=== PATIENT | female | born 1940 | race Caucasian/White ===

== ENCOUNTER 2017-03-20 14:35 | Emergency (ER) | payer MEDICARE, OTHER ==
[2015-01-01 10:22] VITALS: BMI 32.8
[~2017-03-20 14:35] MED LIST: AMBIEN10 MG PO; ATROVENT 0.02%2.5 ML UPD; BAYER CHEWABLE81 MG PO; BONIVA3 MG/3 ML/ IM; CEREFOLIN; CYMBALTA60 MG PO; DEXILANT60 MG PO; ELAVIL25 MG PO; ELIQUIS2.5 MG PO; EVOXAC30 MG PO; EXELON1 PATCH .1 TD; EXELON1 PATCH .1 TRANSDERM; FLEXERIL10 MG PO; GLUCOSAMINE HC500 MG PO; LIPITOR10 MG PO; LYRICA50 MG PO; MOBIC7.5 MG PO; MULTI-DAY VITAM1 TAB PO; NAMENDA XR7 MG; NORCO 10/325 TA1 TA1 PO; PERCOCET 10/3251 TA1 PO; PHENERGAN25 M1 PO; PROBIOTIC1 EAC1 PO; PROTONIX40 MG PO; SYNTHROID50 MCG PO; TOPROL XL50 MG PO; TRICOR145 MG PO; VENTOLIN HFA18 GM INH; XANAX0.5 MG PO
== END 2017-03-20 16:44 | disposition home or self-care (01) ==
LOC: D.ER 14:35
DX: S70.02XA Contusion of left hip, initial encounter (principal); W01.0XXA Fall on same level from slipping, tripping and stumbling without subsequent striking against object, initial encounter; Y93.89 Activity, other specified; Y92.029 Unspecified place in mobile home as the place of occurrence of the external cause

== ENCOUNTER 2017-08-12 15:45 | Inpatient (IN) | payer MEDICARE, OTHER ==
[~2017-08-12] VITALS: Ht 165.1 cm; Wt 95.5 kg
--- NOTE | ~2017-08-12 | EC ---
PATIENT:ALEENA ESPANA DATE OF SERVICE: 08/12/17 SEX: F MEDICAL RECORD: [id number] DATE OF : 42 LOCATION:[facility] AGE OF PATIENT: 77 ADMISSION DATE: 08/12/17 REFERRING PHYSICIAN: INTERPRETING PHYSICIAN: SABRA CRENSHAW MD ECHOCARDIOGRAM REPORT ECHO CHARGES 4 ECHO COMPLETE Date: 08/14 CLINICAL DIAGNOSIS: CHF ECHOCARDIOGRAPHIC MEASUREMENTS (adult normal given) AC root (d.<3.7cm) 3.5 cm LV Septum d (<1.2 cm> 1.6 cm Valve Excursion 1.7 cm LV Septum (systole) 2.0 cm Left Atria (s.<4.0cm> 3.5 cm LVPW d(<1.2cm) 1.6 cm RV (d.<2.3cm) 2.6 cm LVPW (sytole) 2.0 cm LV diastole(<5.6CM) 4.2 cm MV E-F(>70mm/sec) cm LV systole 2.9 cm LVOT Diameter 1.8 cm MV exc.(>10mm) cm Est.ejection fraction (50-75%) % DOPPLER: LVIT cm/sec A 121 cm/sec E 153 cm/sec LA cm/sec RVSP 46.0 mmHg LVOT 96.0 cm/sec AOP1/2T m/s Asc. 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 Crenshaw TAPE# PACS Pericardial Effusion N DATE OF SERVICE: FINDINGS: 1. Left ventricular chamber size is upper limits of normal. Left ventricular systolic function is mild to moderately reduced. Overall ejection fraction in the 35% range. 2. Left atrium, right atrium, and right ventricular chamber sizes are within normal limits. 3. Valvular structures have normal structure and motion. 4. Doppler interrogation reveals moderate mitral regurgitation, moderate ECHOCARDIOGRAM REPORT [id number] ALEENA ESPANA tricuspid regurgitation, no other valvular insufficiency or stenosis. Pulmonary systolic pressure is elevated, estimated at 46 mmHg. 5. No evidence of pericardial effusion or left ventricular thrombus. 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
[2017-08-12 17:39] LABS: ALBUMIN 2.7 g/dL (3.4-5.0); BILIRUBIN - TOTAL 0.56 mg/dL (0.2-1.3); CALCIUM 8.2 mg/dL (8.5-10.1); CARBON DIOXIDE 30.9 mmol/L (21.0-32.0); CREATININE - SERUM 0.9 mg/dL (0.6-1.3)
[2017-08-12 17:46] LABS: POTASSIUM - SERUM 2.9 mmol/L (3.5-5.1)
[2017-08-12 18:48] LABS: BASOPHILS 0.3 % (0-2); EOSINOPHILS 10.6 % (0-7); LYMPHOCYTES 15.9 % (15-50); MCH 22.6 pg (26.0-34.0); MCHC 28.8 g/dL (31.0-37.0); MCV 78.6 fL (80.0-100.0); MEAN PLATELET VOLUME 9.9 fL (7.4-10.4); MONOCYTES 9.9 % (2-11); NEUTROPHILS 63.3 % (40-80); PLATELET COUNT 325 10x3/uL (130-400); RBC 2.52 10x6/uL (4.00-5.40); RDW 18.5 % (11.5-14.5); WBC 6.9 10x3/uL (4.8-10.8)
[2017-08-12 18:52] LABS: HEMATOCRIT 19.8 % (36.0-48.0); HEMOGLOBIN 5.7 g/dL (12-16)
[2017-08-12] MEDS ORDERED: LYRICA50 MG PO (22:29)
[2017-08-12 23:38] VITALS: BP 192/92
[2017-08-12 23:45] VITALS: BP 158/74
[2017-08-13] VITALS (7 sets, daily range): BP systolic 144–192; BP diastolic 53–92; BMI 35.0
[2017-08-13 07:16] LABS: EOSINOPHILS 15.1 % (0-7); IMMATURE GRANULOCYTES 0.1 % (0-5); LYMPHOCYTES 18.8 % (15-50); MCH 23.9 pg (26.0-34.0); MCHC 30.1 g/dL (31.0-37.0); MCV 79.4 fL (80.0-100.0); MEAN PLATELET VOLUME 10.1 fL (7.4-10.4); MONOCYTES 10.9 % (2-11); NEUTROPHILS 54.1 % (40-80); PLATELET COUNT 319 10x3/uL (130-400); RDW 17.7 % (11.5-14.5); WBC 7.2 10x3/uL (4.8-10.8)
[2017-08-13 07:24] LABS: HEMATOCRIT 25.9 % (36.0-48.0); HEMOGLOBIN 7.8 g/dL (12-16); RBC 3.26 10x6/uL (4.00-5.40)
[2017-08-13 08:35] LABS: ALBUMIN 2.6 g/dL (3.4-5.0); ANION GAP 8.4 mmol/L (8-16); BILIRUBIN - TOTAL 0.6 mg/dL (0.2-1.3); CALCIUM 8.4 mg/dL (8.5-10.1); CARBON DIOXIDE 31.8 mmol/L (21.0-32.0); MAGNESIUM - SERUM 1.4 mg/dL (1.8-2.4); PHOSPHOROUS 3.3 mg/dL (2.5-4.9); POTASSIUM - SERUM 3.2 mmol/L (3.5-5.1); PROTEIN - SERUM 5.5 g/dL (6.4-8.2)
[2017-08-13 14:54] LABS: % SATURATION 13 % (15-55); IRON 62 ug/dl (35-150); TOTAL IRON BIND CAPACITY 454 ug/dl (260-445); UNSAT IRON BIND CAPACITY 392 ug/dl (150-375)
[2017-08-13] MEDS ORDERED: TRICOR145 MG PO (15:51)
[2017-08-13] MEDS ORDERED: MOBIC7.5 MG PO (15:52)
[2017-08-13] MEDS ORDERED: AMBIEN10 MG PO (15:53)
[2017-08-13] MEDS ORDERED: CALCIUM 600 +1 EAC3 PO (15:55)
[2017-08-13] MEDS ORDERED: PROTONIX40 MG PO (15:56)
[2017-08-13] MEDS ORDERED: TOPROL XL50 MG PO (15:57)
[2017-08-13] MEDS ORDERED: LIPITOR10 MG PO (16:00)
[2017-08-13] MEDS ORDERED: CENTRUM SILVER1 TA1 PO (16:01)
[2017-08-14] VITALS (13 sets, daily range): BP systolic 105–169; BP diastolic 67–92; Ht 165.1 cm; Wt 95.5 kg
[2017-08-14 05:35] LABS: EOSINOPHILS 14.9 % (0-7); IMMATURE GRANULOCYTES 0.3 % (0-5); LYMPHOCYTES 20.8 % (15-50); MCH 25.5 pg (26.0-34.0); MCHC 31.8 g/dL (31.0-37.0); MCV 80.3 fL (80.0-100.0); MEAN PLATELET VOLUME 10.5 fL (7.4-10.4); PLATELET COUNT 266 10x3/uL (130-400); RDW 16.4 % (11.5-14.5); WBC 6.2 10x3/uL (4.8-10.8)
[2017-08-14 05:41] LABS: HEMATOCRIT 34.6 % (36.0-48.0); RBC 4.31 10x6/uL (4.00-5.40)
[2017-08-14 06:02] LABS: ANION GAP 7.2 mmol/L (8-16); CALCIUM 8.1 mg/dL (8.5-10.1); CARBON DIOXIDE 30.2 mmol/L (21.0-32.0); CREATININE - SERUM 0.8 mg/dL (0.6-1.3); POTASSIUM - SERUM 3.4 mmol/L (3.5-5.1)
[2017-08-15 00:40] VITALS: BP 152/78
[2017-08-15 04:38] VITALS: BP 140/77
[2017-08-15 06:30] LABS: BASOPHILS 0.9 % (0-2); EOSINOPHILS 12.5 % (0-7); HEMATOCRIT 36.5 % (36.0-48.0); HEMOGLOBIN 11.7 g/dL (12-16); IMMATURE GRANULOCYTES 0.3 % (0-5); LYMPHOCYTES 17.6 % (15-50); MCH 25.8 pg (26.0-34.0); MCHC 32.1 g/dL (31.0-37.0); MCV 80.6 fL (80.0-100.0); MEAN PLATELET VOLUME 11.3 fL (7.4-10.4); NEUTROPHILS 49.7 % (40-80); PLATELET COUNT 309 10x3/uL (130-400); RBC 4.53 10x6/uL (4.00-5.40); RDW 17.1 % (11.5-14.5)
[2017-08-15 06:46] LABS: ALBUMIN 2.4 g/dL (3.4-5.0); ANION GAP 10.2 mmol/L (8-16); BILIRUBIN - TOTAL 0.43 mg/dL (0.2-1.3); CARBON DIOXIDE 29.9 mmol/L (21.0-32.0); PROTEIN - SERUM 5.7 g/dL (6.4-8.2)
[2017-08-15 06:48] LABS: POTASSIUM - SERUM 3.1 mmol/L (3.5-5.1)
[2017-08-15 08:21] LABS: FOLATE (FOLIC ACID) - SERUM 14.9 ng/mL (>3.0)
[2017-08-15 09:10] VITALS: BP 151/99
[2017-08-15 13:51] VITALS: BP 162/84
== END 2017-08-15 18:36 | disposition home health service (06) | DRG 812 ==
LOC: D.ER 15:45 → D.EDHOLD 18:56 → D.MS 18:56 → D.M2 18:56 → D.MS 21:18 → D.SDCHOLD 08-14 12:43 → D.MS 08-15 18:36
PROVIDERS: Family Medicine; Internal Medicine Nephrology; Physician Assistant
DX: D50.9 Iron deficiency anemia, unspecified (principal); F03.90 Unspecified dementia, unspecified severity, without behavioral disturbance, psychotic disturbance, mood disturbance, and anxiety; J44.9 Chronic obstructive pulmonary disease, unspecified; R53.1 Weakness; K21.9 Gastro-esophageal reflux disease without esophagitis; I10 Essential (primary) hypertension; E87.6 Hypokalemia; E83.42 Hypomagnesemia; Z95.0 Presence of cardiac pacemaker; W57.XXXA Bitten or stung by nonvenomous insect and other nonvenomous arthropods, initial encounter; B88.8 Other specified infestations; M19.90 Unspecified osteoarthritis, unspecified site; Z99.3 Dependence on wheelchair

== ENCOUNTER 2017-10-17 15:51 | Inpatient (IN) | payer MEDICARE, OTHER ==
[~2017-10-17] VITALS: Ht 165.1 cm; Wt 72.6 kg
[~2017-10-17 15:51] MED LIST changes: +CALCIUM 600 +1 EAC3 PO; +CENTRUM SILVER1 TA1 PO
[2017-10-17] MEDS ORDERED: XANAX0.5 MG PO (17:01)
[2017-10-17] MEDS ORDERED: VENTOLIN HFA18 GM INH (17:03)
[2017-10-17] MEDS ORDERED: [UNRECOGNIZED DRUG - OTHER] (17:14)
[2017-10-17 17:43] VITALS: BP 186/70; BMI 26.6
[2017-10-17 18:57] LABS: BASOPHILS 0.5 % (0-2); EOSINOPHILS 7.8 % (0-7); HEMOGLOBIN 9.4 g/dL (12-16); IMMATURE GRANULOCYTES 0.2 % (0-5); LYMPHOCYTES 20.3 % (15-50); MCH 28.2 pg (26.0-34.0); MCHC 32.4 g/dL (31.0-37.0); MCV 87.1 fL (80.0-100.0); MEAN PLATELET VOLUME 10.5 fL (7.4-10.4); MONOCYTES 8.5 % (2-11); NEUTROPHILS 62.7 % (40-80); PLATELET COUNT 258 10x3/uL (130-400); RBC 3.33 10x6/uL (4.00-5.40); RDW 20.5 % (11.5-14.5); WBC 6.2 10x3/uL (4.8-10.8)
[2017-10-17 19:16] LABS: ALBUMIN 2.8 g/dL (3.4-5.0); ANION GAP 5.9 mmol/L (8-16); BILIRUBIN - TOTAL 0.22 mg/dL (0.2-1.3); CALCIUM 8.4 mg/dL (8.5-10.1); CARBON DIOXIDE 34.3 mmol/L (21.0-32.0); CREATININE - SERUM 0.9 mg/dL (0.6-1.3); POTASSIUM - SERUM 3.2 mmol/L (3.5-5.1); PROTEIN - SERUM 5.8 g/dL (6.4-8.2)
[2017-10-17 19:24] LABS: THYROID STIMULATING HORMONE 3.09 uIU/mL (0.36-3.74)
[2017-10-17 20:00] VITALS: BP 181/72
[2017-10-18] VITALS: BP 155/69
[2017-10-18 02:23] LABS: APPEARANCE CLEAR (CLEAR); BILIRUBIN NEGATIVE (NEGATIVE); COLOR YELLOW (YELLOW); GLUCOSE NEGATIVE (NEGATIVE); KETONE NEGATIVE (NEGATIVE); NITRITE NEGATIVE (NEGATIVE); PROTEIN NEGATIVE (NEGATIVE); SPECIFIC GRAVITY 1.005 (1.005-1.020); UROBILINOGEN NORMAL (NORMAL)
[2017-10-18 08:29] VITALS: BP 130/70
[2017-10-18 11:37] VITALS: BP 140/80
[2017-10-18 14:16] VITALS: Ht 165.1 cm; Wt 72.6 kg
[2017-10-18 15:37] VITALS: BP 138/78
[2017-10-18 19:29] LABS: HEMATOCRIT 30.7 % (36.0-48.0); HEMOGLOBIN 10.1 g/dL (12-16); MCH 28.2 pg (26.0-34.0); MCHC 32.9 g/dL (31.0-37.0); MCV 85.8 fL (80.0-100.0); MEAN PLATELET VOLUME 10.8 fL (7.4-10.4); PLATELET COUNT 297 10x3/uL (130-400); RBC 3.58 10x6/uL (4.00-5.40); RDW 20.5 % (11.5-14.5); WBC 5.2 10x3/uL (4.8-10.8)
[2017-10-18 19:54] LABS: ANION GAP 8.7 mmol/L (8-16); BILIRUBIN - TOTAL 0.27 mg/dL (0.2-1.3); CALCIUM 8.6 mg/dL (8.5-10.1); CARBON DIOXIDE 32.9 mmol/L (21.0-32.0); CREATININE - SERUM 0.9 mg/dL (0.6-1.3); MAGNESIUM - SERUM 1.6 mg/dL (1.8-2.4); POTASSIUM - SERUM 3.6 mmol/L (3.5-5.1); PROTEIN - SERUM 6.6 g/dL (6.4-8.2)
[2017-10-18 19:58] LABS: APTT 29.1 SECONDS (22.8-39.4); INR 1.03 (0.85-1.17); PROTIME 13.1 SECONDS (11.6-15.0)
[2017-10-18 20:00] VITALS: BP 199/82
[2017-10-18 20:44] LABS: EOSINOPHILS 7 % (0-7); LYMPHOCYTES 28 % (15-50); MONOCYTES 3 % (2-11); NEUTROPHILS 63 % (40-80); PLATELET ESTIMATE NORMAL
[2017-10-18 20:53] VITALS: BP 199/82
[2017-10-19 01:31] VITALS: BP 206/90
[2017-10-19 04:59] LABS: BASOPHILS 0.9 % (0-2); EOSINOPHILS 8.3 % (0-7); HEMATOCRIT 28.7 % (36.0-48.0); HEMOGLOBIN 9.4 g/dL (12-16); LYMPHOCYTES 29.1 % (15-50); MCHC 32.8 g/dL (31.0-37.0); MCV 85.4 fL (80.0-100.0); MEAN PLATELET VOLUME 10.6 fL (7.4-10.4); MONOCYTES 10.9 % (2-11); NEUTROPHILS 50.8 % (40-80); PLATELET COUNT 255 10x3/uL (130-400); RBC 3.36 10x6/uL (4.00-5.40); RDW 20.4 % (11.5-14.5); WBC 4.6 10x3/uL (4.8-10.8)
[2017-10-19 05:28] LABS: CALCIUM 8.2 mg/dL (8.5-10.1); CARBON DIOXIDE 31.1 mmol/L (21.0-32.0); CREATININE - SERUM 0.9 mg/dL (0.6-1.3); POTASSIUM - SERUM 3.1 mmol/L (3.5-5.1)
[2017-10-19 06:06] VITALS: BP 106/73
[2017-10-19 07:54] VITALS: BP 139/78
[2017-10-19 10:57] VITALS: BP 142/79
[2017-10-19 16:38] VITALS: BP 136/78
[2017-10-19 17:35] LABS: ANION GAP 10.1 mmol/L (8-16); CALCIUM 9.1 mg/dL (8.5-10.1); CARBON DIOXIDE 30.1 mmol/L (21.0-32.0); CREATININE - SERUM 0.8 mg/dL (0.6-1.3)
[2017-10-19 17:37] LABS: POTASSIUM - SERUM 4.2 mmol/L (3.5-5.1)
[2017-10-19 19:00] VITALS: BP 175/83
[2017-10-20 01:39] VITALS: BP 135/65
[2017-10-20 04:00] VITALS: BP 136/63
[2017-10-20 05:37] LABS: EOSINOPHILS 5.5 % (0-7); HEMATOCRIT 28.2 % (36.0-48.0); HEMOGLOBIN 9.4 g/dL (12-16); LYMPHOCYTES 33.6 % (15-50); MCH 28.1 pg (26.0-34.0); MCHC 33.3 g/dL (31.0-37.0); MCV 84.4 fL (80.0-100.0); MONOCYTES 12.9 % (2-11); PLATELET COUNT 256 10x3/uL (130-400); RBC 3.34 10x6/uL (4.00-5.40); RDW 20.3 % (11.5-14.5)
[2017-10-20 05:41] LABS: ANION GAP 8.9 mmol/L (8-16); CALCIUM 9.2 mg/dL (8.5-10.1); CARBON DIOXIDE 31.3 mmol/L (21.0-32.0); CREATININE - SERUM 0.9 mg/dL (0.6-1.3)
[2017-10-20 05:42] LABS: POTASSIUM - SERUM 3.2 mmol/L (3.5-5.1)
[2017-10-20 07:40] VITALS: BP 132/71
[2017-10-20 10:54] VITALS: BP 130/64
[2017-10-20 14:53] VITALS: BP 138/76
[2017-10-20 21:24] VITALS: BP 158/74
[2017-10-21 01:30] VITALS: BP 137/66
[2017-10-21 06:28] VITALS: BP 157/67
[2017-10-21 07:06] LABS: BASOPHILS 0.7 % (0-2); EOSINOPHILS 9.2 % (0-7); HEMATOCRIT 29.2 % (36.0-48.0); HEMOGLOBIN 9.5 g/dL (12-16); IMMATURE GRANULOCYTES 0.2 % (0-5); LYMPHOCYTES 30.9 % (15-50); MCH 28.2 pg (26.0-34.0); MCHC 32.5 g/dL (31.0-37.0); MCV 86.6 fL (80.0-100.0); MEAN PLATELET VOLUME 11.1 fL (7.4-10.4); MONOCYTES 11.9 % (2-11); NEUTROPHILS 47.1 % (40-80); PLATELET COUNT 260 10x3/uL (130-400); RBC 3.37 10x6/uL (4.00-5.40); RDW 20.7 % (11.5-14.5); WBC 4.4 10x3/uL (4.8-10.8)
[2017-10-21 07:27] LABS: ANION GAP 10.2 mmol/L (8-16); CALCIUM 8.7 mg/dL (8.5-10.1); CARBON DIOXIDE 29.6 mmol/L (21.0-32.0); CREATININE - SERUM 0.9 mg/dL (0.6-1.3)
[2017-10-21 07:28] LABS: POTASSIUM - SERUM 3.8 mmol/L (3.5-5.1)
[2017-10-21 08:51] VITALS: BP 158/83
[2017-10-21 12:26] VITALS: BP 160/80
[2017-10-21 16:17] VITALS: BP 149/74
[2017-10-21 23:07] VITALS: BP 165/82
[2017-10-22 05:51] LABS: BASOPHILS 0.6 % (0-2); EOSINOPHILS 7.7 % (0-7); HEMOGLOBIN 9.5 g/dL (12-16); IMMATURE GRANULOCYTES 0.2 % (0-5); LYMPHOCYTES 27.1 % (15-50); MCH 28.3 pg (26.0-34.0); MCHC 32.8 g/dL (31.0-37.0); MCV 86.3 fL (80.0-100.0); MEAN PLATELET VOLUME 11.1 fL (7.4-10.4); MONOCYTES 11.3 % (2-11); NEUTROPHILS 53.1 % (40-80); PLATELET COUNT 240 10x3/uL (130-400); RBC 3.36 10x6/uL (4.00-5.40); RDW 20.2 % (11.5-14.5); WBC 4.8 10x3/uL (4.8-10.8)
[2017-10-22 05:57] LABS: ANION GAP 8.7 mmol/L (8-16); CALCIUM 8.5 mg/dL (8.5-10.1); CREATININE - SERUM 0.8 mg/dL (0.6-1.3); MAGNESIUM - SERUM 1.6 mg/dL (1.8-2.4); POTASSIUM - SERUM 3.7 mmol/L (3.5-5.1)
[2017-10-22 06:25] VITALS: BP 145/75
[2017-10-22 09:01] VITALS: BP 144/66
[2017-10-22 13:32] VITALS: BP 150/79
[2017-10-23 05:59] LABS: BASOPHILS 0.3 % (0-2); EOSINOPHILS 6.9 % (0-7); HEMATOCRIT 27.7 % (36.0-48.0); IMMATURE GRANULOCYTES 0.2 % (0-5); MCH 27.9 pg (26.0-34.0); MCHC 32.5 g/dL (31.0-37.0); MCV 85.8 fL (80.0-100.0); MEAN PLATELET VOLUME 10.9 fL (7.4-10.4); MONOCYTES 12.2 % (2-11); NEUTROPHILS 60.4 % (40-80); PLATELET COUNT 250 10x3/uL (130-400); RBC 3.23 10x6/uL (4.00-5.40); RDW 19.6 % (11.5-14.5); WBC 5.9 10x3/uL (4.8-10.8)
[2017-10-23 06:20] LABS: ANION GAP 7.8 mmol/L (8-16); CALCIUM 8.4 mg/dL (8.5-10.1); CARBON DIOXIDE 30.6 mmol/L (21.0-32.0); CREATININE - SERUM 0.9 mg/dL (0.6-1.3); MAGNESIUM - SERUM 1.8 mg/dL (1.8-2.4); POTASSIUM - SERUM 3.4 mmol/L (3.5-5.1)
[2017-10-23] MEDS ORDERED: TOPROL XL50 MG PO (12:03)
[2017-10-23] MEDS ORDERED: LASIX20 MG PO (12:04)
== END 2017-10-23 14:22 | DRG 884 ==
LOC: D.M2 15:51
PROVIDERS: Emergency Medicine; Internal Medicine Nephrology
DX: R54 Age-related physical debility (principal); D50.9 Iron deficiency anemia, unspecified; J44.9 Chronic obstructive pulmonary disease, unspecified; I10 Essential (primary) hypertension; E87.6 Hypokalemia; E78.5 Hyperlipidemia, unspecified; K21.9 Gastro-esophageal reflux disease without esophagitis; F41.9 Anxiety disorder, unspecified; F03.90 Unspecified dementia, unspecified severity, without behavioral disturbance, psychotic disturbance, mood disturbance, and anxiety; M32.9 Systemic lupus erythematosus, unspecified; B88.8 Other specified infestations; Z95.0 Presence of cardiac pacemaker; Z86.73 Personal history of transient ischemic attack (TIA), and cerebral infarction without residual deficits; R53.1 Weakness